=== PATIENT | male | born 2000 | race Caucasian/White ===

== ENCOUNTER 2023-07-08 13:44 | Emergency (ER) | payer SELFPAY ==
[2023-07-08 14:02] VITALS: BP 133/74; PULSE 76; RESP 18; TEMP 36.7; O2SAT 100; BMI 34.7
--- NOTE | 2023-07-08 14:15 | PC.NURSE ---
Bilateral eyes tested pH 7.0 in both
[2023-07-08 15:04] VITALS: PULSE 80; O2SAT 99
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
[2023-07-08] MEDS: FLUORESCEIN 1 MG STRIP EYE-RIGHT (15:22)
[2023-07-08] MEDS: TET,DIPH,PERTUSS(ACELL),VAC/PF 0.5 ML SYRINGE IM (15:22)
[2023-07-08] MEDS: PROPARACAINE 0.5% OPHTH SOL 1 DROPS EYE-RIGHT (15:22)
[2023-07-08 15:30] VITALS: BP 130/69; PULSE 80; O2SAT 98
[2023-07-08] MEDS: SODIUM CHLORIDE 0.9% 1,000 ML 1000 ML IV (15:34)
[2023-07-08] MEDS: ERYTHROMYCIN OPHTH 1 GM OINT 1 APPLIC EYE-RIGHT (16:16)
== END 2023-07-08 16:19 | disposition home or self-care (01) ==
PROVIDERS: Emergency Provider Emergency Medicine
DX: S05.01XA Injury of conjunctiva and corneal abrasion without foreign body, right eye, initial encounter (principal); W40.8XXA Explosion of other specified explosive materials, initial encounter; Z23 Encounter for immunization
CPT/HCPCS: 90471; 99283; 90715